=== PATIENT | female | born 1975 | race Caucasian/White ===

== ENCOUNTER 2017-07-22 06:55 | Inpatient (IN) | payer BC ==
[~2017-07-22 06:55] MED LIST: CEFAZOLIN 2 Gram 2 GM/50 ML BAG IVPB ONE; CELECOXIB 100 MG CAPSULE PO ONE; FAMOTIDINE 20MG TABLET PO ONE; MECLIZINE 25 MG TABLET PO ONE; METOCLOPRAMIDE 10 MG TABLET PO ONE; VANCOMYCIN HCL 1,000 MG in DEXTROSE 5 % IN WATER 250 ML IVPB ONE
[2017-07-22 07:57] LABS: ABO GROUP B; ANTIBODY SCREEN NEGATIVE (NEGATIVE); RH TYPE POSITIVE
[2017-07-22] MEDS ORDERED: TRAMADOL HCL 50 MG TABLET PO PRN (10:41)
[2017-07-22] MEDS ORDERED: MAGNESIUM HYDROXIDE 30 ML UDC PO PRN (10:41)
[2017-07-22] MEDS ORDERED: ZOLPIDEM TARTRATE 5 MG TABLET PO PRN (10:41)
[2017-07-22] MEDS ORDERED: ONDANSETRON HCL IV 4 MG/2 ML VIAL IVP PRN (10:41)
[2017-07-22] MEDS ORDERED: BISACODYL 10 MG SUPP RC PRN (10:41)
[2017-07-22] MEDS ORDERED: NALOXONE 0.4 MG/1 ML VIAL IVP PRN (10:41)
[2017-07-22] MEDS ORDERED: ACETAMINOPHEN 325 MG TAB PO PRN (10:41)
[2017-07-22] MEDS ORDERED: AL HYDROX/MAG HYDROX 30ML UD PO PRN (10:41)
[2017-07-22] MEDS ORDERED: ACETAMINOPHEN W/ CODEINE 300MG/60MG TABLET PO PRN ×2 (10:41)
[2017-07-22] MEDS ORDERED: HYDROCODONE/APAP 10/325 TABLET PO PRN (10:41)
[2017-07-22] MEDS: HYDROMORPHONE HCL 2 MG/ML VIAL IM PRN ×3 (12:50→20:51)
[2017-07-22] MEDS: POTASSIUM CHLORIDE/D5-0.9%NACL 20 MEQ/1,000 ML BAG IV SCH ×2 (12:52→21:36)
--- NOTE | 2017-07-22 14:22 | Rehab Evaluation ---
Patient Information - Patient Information Diagnosis: L knee DJD Ordered Treatment: PT Evaluate and Treat Status: Initial Evaluation Surgery: Yes (L TKA) Date of Surgery: 07/22/17 Past Medical/Surgical Hx: PAST MEDICAL/SURGICAL HISTORY Past Surgical History left knee scope c section right shoulder surgery back sx last on 07-06-17 cage with rods lumbar and then hardware removal with synthetic disc lap band juan m PMH - Respiratory Hx Respiratory Disorders No Hx Asthma No Hx Bronchitis No Hx Chronic Obstructive No Pulmonary Disease (COPD) Hx Dyspnea No Hx Pneumonia No Hx Pulmonary Embolism No Hx Sleep Apnea No Hx Tuberculosis No Hx of CPAP No PMH - Cardiovascular Hx Cardiovascular Disorders No Hx Abnormal EKG No Hx Cardiac Catheterization No Hx Chest Pain No Hx Congestive Heart Failure No Hx Deep Vein Thrombosis No Hx Edema No Hx Heart Attack No Hx Hypertension No Hx Hypotension No Hx Irregular Heartbeat No Hx Palpitations No Hx Pacemaker/Defibrillator No Hx Vascular Disease No Exercise Tolerance Good Hx Transient Ischemic Attacks No (TIA) Hx of Migraines Yes: hx of PMH - Neuro Hx Brain Tumor No Hx Cerebrovascular Accident No Hx Dementia No Hx Dizziness No Hx Headaches Yes Hx Neuropathy Yes: left leg from back Hx Parkinson's Disease No Hx Seizures No Hx Speech Problem No Hx Syncope No Hx Transient Ischemic Attacks No (TIA) Comment: blood clot on brain 6 yrs ago, dissolved with medication. blood thin 6mo PMH - GI Hx Gastrointestinal Disorders No Hx Abdominal Pain No Hx Celiac Disease No Hx Crohn's Disease No Hx Diverticulitis No Hx Gastrointestinal Bleed No Hx Gastroesophageal Reflux No Hx Hepatitis/Jaundice No Hx Hiatal Hernia No Hx Irritable Bowel No Hx Liver Disease No Hx Nausea/Vomiting No Hx Obstructive Bowel No Hx Pancreatitis Yes: 2014 Hx Rectal Bleeding No Hx Ulcer No Hx Weight Loss/Weight Gain No Comment: gastric lap band 2011 PMH - Hx Genitourinary Disorders No Hx Age of Menopause 37 Hx Bladder Problem No Hx Dialysis No Hx Kidney Stones No Hx Renal Disease No Hx Urinary Tract Infection No PMH - Endocrine Hx Endocrine Disorders No Hx Diabetes No Hx Thyroid Disease No PMH - Musculoskeletal Hx Musculoskeletal Disorders Yes Hx Arthritis Yes Hx Back Injury Yes Hx Fibromyalgia No Hx Gout No Hx Musculoskeletal Disease No Hx Osteoporosis No PMH - Psych Hx Psychiatric Problems Yes Hx Anxiety Yes Hx Behavior Problems No Hx Depression No Hx Emotional Abuse No Hx Sexual Abuse No Hx Suicide Attempt No Major Depressive Episode No Feelings of Hopelessness No PMH - Hematology/Oncology Hx Hematology/Oncology Yes Disorders Hx Anemia No Hx Blood Disorders No Hx Bruising No Hx Cancer No Hx Clotting Problems Yes: clot in brain 6 years ago Hx Sickle Cell Disease No Hx Unexplained Bleeding No Hx Blood Transfusion Reaction No Premorbid Status: Detail (The patient was independent with all mobility, ambulation was painful.) Social History: Detail (The patient lives in a single story home with 3 to 4 steps and a railing at the enterance. The patient's bathroom is equipped with a tub/shower combination with a tub seat and a standard toilet without grab rails. The patient has a two wheeled walker.) Precautions: [place], Other (WBAT on the L LE.) - Time With Patient Total Time Spent With Patient (Min): 30 Treatment Procedures: Detail (Initial Evaluation, gait training.) Subjective Information - Subjective Information Per Patient (The patient had minimal complaints of knee pain. The patient did not rate her pain using 0-10 pain scale.) Objective Data - Mental Status Patient Orientation: Oriented x3 - Visual Perception Appears within normal limits for therapeutic activities - ROM Not within normal limits (The patient's R LE AROM was WNL. The patient's L knee AROM was not tested secondary to s/p surgery, L hip and ankle AROM were WNL.) - Strength/Tone Not within normal limits (The patient's R LE strength was generally 4+ to 5/5, L LE strength was not tested secondary to status post surgery however strength was functional, the patient was able to complete a SLR.) - Bed Mobility Independent (The patient was independent with supine to and from sit.) - Transfers Independent (The patient was independent with sit to and from stand transfer and toilet transfer. The patient required occasional verbal cues to use walker to turn.) - Balance Balance Sitting: Good Balance Standing: Good - Gait Detail (The patient ambulated with wheeled walker WBAT on the L LE 60 feet x 1, 13 feet x 1 with assist of one for equipment only.) Therapy Assessment - Therapy Assessment Detail (The patient was still drowsy from surgery however the patient was independent with mobility. Feel the patient will progress well in PT.) Problem List - Problem List Physical Therapy Problem List: Detail (1) Decreased L LE AROM and strength as to be expected following surgery. 2) Non ambulatory on stairs) Goals - Goals Physical Therapy Goals: 1) The patient will be Independent/supervision for safety with ambulation on stairs. 2) The patient will be independent with HEP. 3) The patient will be independent with ambulation on levels a distance of 70 feet plus WBAT on the L LE. Prognosis - Prognosis Good Plan - Plan Physical Therapy Plan: PT 1-2 times a day for gait training, transfer training and instruction in HEP until all inpatient PT goals are met.
[2017-07-22] MEDS ORDERED: HYDROMORPHONE HCL 2 MG/ML VIAL IV ONE (14:36)
--- NOTE | 2017-07-22 15:22 | Operative Note ---
DATE OF SURGERY: 07/22/17 PREOPERATIVE DIAGNOSIS: OSTEOARTHROSIS OF THE RIGHT KNEE. POSTOPERATIVE DIAGNOSIS: OSTEOARTHROSIS OF THE RIGHT KNEE. PROCEDURE: CEMENTED LEFT TOTAL KNEE ARTHROPLASTY USING BARROW-NEPHEW MAICO II COMPONENTS WITH A SIZE 4 OXINIUM FEMUR, SIZE 4 STEM TIBIAL BASEPLATE, A 9 MM LIPPED HIGHLY CROSSLINKED TIBIAL INSERT, AND A 35 MM ALL-PLASTIC PATELLA. STAFF SURGEON: SAMPSON KHAN M.D. ANESTHESIA: GENERAL. PREPARATION: CHLORAPREP. INDIVIDUAL CONSIDERATIONS: NONE. PROCEDURE: The patient was taken to the Operating Room and placed supine on the operating table. She had a successful induction of a general anesthetic. Her left lower extremity was prepped and draped in the usual fashion. The limb was elevated. The tourniquet was inflated to 300 mmHg. The patient had a midline approach to the knee. Sharp dissection was carried down through the skin and subcutaneous tissues. Small veins were coagulated with a Bovie. A medial arthrotomy was performed. Patella was everted and the knee was flexed. She had changes on the patella in the notch and changes especially in the medial femoral condyle and essentially on the medial tibial plateau. The fat pad was resected, ACL was sacrificed, provisional anterior meniscectomies were performed, and the capsule was released from the medial proximal tibia. The initial femoral boat pilot hole was then made freehand. The intramedullary femoral cutting jig was placed and it was cut in 7.0 degrees of valgus and adjusted for rotation, and secured with pins for a 10 mm resection. The initial transverse cut was then made. Skin guide was placed for the anterior and posterior boat pilot holes. It was found that a size 4 would be appropriate after translating anteriorly 2 mm using the guide. The anterior and posterior cuts followed by chamfer cuts were made, osteophytes were removed, and a size 4 trial was placed and found to fit well. The tibia was brought forward and the remainder of the meniscal remnants were removed with a Bovie. The extra-articular tibial guide was placed and it was cut in neutral with a 3-degree AP slope. Care was taken to adjust for rotation and flexion using the extra-articular alignment guide and bony landmarks. It was set for a 9 mm resection and keyed off the high lateral side and secured with pins. When cutting the tibia, care was taken to preserve the PCL insertion on the tibia. After removing osteophytes, I was able to fit a size 4, it was adjusted for rotation, and secured with pins. With a 9 mm trial and femoral trial, there was excellent motion and stability. Ligamentous balance, rotation, and alignment were thought to be normal. The femoral boat pilot holes were impacted and the triflange tibial stamp was impacted, and these trial components were removed. The patient had a thick patella and roughly 9 mm of bone was removed with an oscillating saw and I was easily able to fit a 35 mm patella. The boat pilot holes were drilled. The tourniquet was let down briefly and hemostasis was obtained posteriorly and then placed back up again. The knee was then thoroughly irrigated out with pulsatile Betadine and saline to remove any visual or palpable debris. Bony surfaces were then dried. A size 4 stemmed tibial baseplate was cemented into place, followed by impaction of a 9 mm lipped tibial insert, followed by cementing in the size 4 Oxinium femur, followed by cementing of a 35 mm patella. Implant surfaces were compressed, excess cement was removed, and after the cement had set, there was excellent motion and stability, ligamentous balance, rotation, alignment, and patellofemoral tracking were normal. No lateral release was required. Again, thorough irrigation. The tourniquet was let down. Hemostasis was obtained with a Bovie. The skin, subcutaneous, and periosteum were then infiltrated with 0.75% Marcaine with Epinephrine. After putting the tourniquet down and obtaining hemostasis and doing a final irrigation, the capsule was closed with a running # 2 quill, the subcutaneous was closed with running 0 quill, the skin was closed with ace, and a sterile Bulkee compressive Aquacel-type dressing was applied. Prior to this, I did inject the knee with 1 gram of Tranexamic Acid mixed with 30 mL of saline. The patient did receive 1 gram of Tranexamic Acid IV prior to the procedure. The patient tolerated the procedure well. Needle and sponge counts were correct. Estimated blood loss was minimal and she was taken back to the Recovery Room in good condition. There were no complications. cc: Dr. Chaim Watt JOB NUMBER: [id number] MTDD
[2017-07-22] MEDS ORDERED: TRANEXAMIC ACID 1,000 MG/10 ML ML IV ONE (15:40)
[2017-07-22] MEDS ORDERED: BUPIVACAINE 0.75% W/EPI MPF 30ML VIAL IVP ONE (15:40)
[2017-07-22] MEDS: CEFAZOLIN 2 Gram 2 GM/50 ML BAG IVPB SCH (17:21)
[2017-07-22] MEDS: HYDROCODONE/APAP 10/325 TABLET PO PRN (17:28)
[2017-07-22] MEDS: DIPHENHYDRAMINE HCL 25 MG CAPSULE PO PRN (20:00)
[2017-07-22] MEDS: DOCUSATE SODIUM 100 MG CAPSULE PO SCH (21:37)
[2017-07-22] MEDS ORDERED: ZOLPIDEM TARTRATE 5 MG TABLET PO SCH (22:00)
[2017-07-23] MEDS: CEFAZOLIN 2 Gram 2 GM/50 ML BAG IVPB SCH ×2 (00:49→08:54)
[2017-07-23] MEDS: HYDROCODONE/APAP 10/325 TABLET PO PRN ×3 (01:35→10:38)
[2017-07-23] MEDS: DIPHENHYDRAMINE HCL 25 MG CAPSULE PO PRN (03:12)
[2017-07-23] MEDS: POTASSIUM CHLORIDE/D5-0.9%NACL 20 MEQ/1,000 ML BAG IV SCH ×2 (04:18→14:52)
[2017-07-23 07:00] LABS: HEMATOCRIT 33.7 % (35.0-47.0); HEMOGLOBIN 10.6 gm/dl (11.6-16.0)
[2017-07-23 07:14] LABS: BLOOD UREA NITROGEN 7 mg/dL (6-20); CREATININE 0.7 mg/dL (0.5-0.9); EST GLOMERULAR FILTRATION RATE > 60 mL/min; GLUCOSE,RANDOM 82 mg/dL (74-109)
[2017-07-23] MEDS: HYDROMORPHONE HCL 2 MG/ML VIAL IM PRN (08:52)
[2017-07-23] MEDS ORDERED: RIVAROXABAN 10 MG TABLET PO SCH (10:00)
[2017-07-23] MEDS ORDERED: FLUOXETINE HCL 20 MG CAPSULE PO SCH (10:00)
[2017-07-23] MEDS ORDERED: FERROUS SULFATE 325 MG TAB PO SCH (10:00)
[2017-07-23] MEDS: DOCUSATE SODIUM 100 MG CAPSULE PO SCH (10:39)
--- NOTE | 2017-07-23 11:08 | Rehab Evaluation ---
Patient Information - Patient Information Diagnosis: L knee DJD Ordered Treatment: OT Evaluate and Treat Status: Initial Evaluation Surgery: Yes (L TKA) Date of Surgery: 07/22/17 Past Medical/Surgical Hx: PAST MEDICAL/SURGICAL HISTORY Past Surgical History left knee scope c section right shoulder surgery back sx last on 07-06-17 cage with rods lumbar and then hardware removal with synthetic disc lap band juan m PMH - Respiratory Hx Respiratory Disorders No Hx Asthma No Hx Bronchitis No Hx Chronic Obstructive No Pulmonary Disease (COPD) Hx Dyspnea No Hx Pneumonia No Hx Pulmonary Embolism No Hx Sleep Apnea No Hx Tuberculosis No Hx of CPAP No PMH - Cardiovascular Hx Cardiovascular Disorders No Hx Abnormal EKG No Hx Cardiac Catheterization No Hx Chest Pain No Hx Congestive Heart Failure No Hx Deep Vein Thrombosis No Hx Edema No Hx Heart Attack No Hx Hypertension No Hx Hypotension No Hx Irregular Heartbeat No Hx Palpitations No Hx Pacemaker/Defibrillator No Hx Vascular Disease No Exercise Tolerance Good Hx Transient Ischemic Attacks No (TIA) Hx of Migraines Yes: hx of PMH - Neuro Hx Brain Tumor No Hx Cerebrovascular Accident No Hx Dementia No Hx Dizziness No Hx Headaches Yes Hx Neuropathy Yes: left leg from back Hx Parkinson's Disease No Hx Seizures No Hx Speech Problem No Hx Syncope No Hx Transient Ischemic Attacks No (TIA) Comment: blood clot on brain 6 yrs ago, dissolved with medication. blood thin 6mo PMH - GI Hx Gastrointestinal Disorders No Hx Abdominal Pain No Hx Celiac Disease No Hx Crohn's Disease No Hx Diverticulitis No Hx Gastrointestinal Bleed No Hx Gastroesophageal Reflux No Hx Hepatitis/Jaundice No Hx Hiatal Hernia No Hx Irritable Bowel No Hx Liver Disease No Hx Nausea/Vomiting No Hx Obstructive Bowel No Hx Pancreatitis Yes: 2014 Hx Rectal Bleeding No Hx Ulcer No Hx Weight Loss/Weight Gain No Comment: gastric lap band 2011 PMH - Hx Genitourinary Disorders No Hx Age of Menopause 37 Hx Bladder Problem No Hx Dialysis No Hx Kidney Stones No Hx Renal Disease No Hx Urinary Tract Infection No PMH - Endocrine Hx Endocrine Disorders No Hx Diabetes No Hx Thyroid Disease No PMH - Musculoskeletal Hx Musculoskeletal Disorders Yes Hx Arthritis Yes Hx Back Injury Yes Hx Fibromyalgia No Hx Gout No Hx Musculoskeletal Disease No Hx Osteoporosis No PMH - Psych Hx Psychiatric Problems Yes Hx Anxiety Yes Hx Behavior Problems No Hx Depression No Hx Emotional Abuse No Hx Sexual Abuse No Hx Suicide Attempt No Major Depressive Episode No Feelings of Hopelessness No PMH - Hematology/Oncology Hx Hematology/Oncology Yes Disorders Hx Anemia No Hx Blood Disorders No Hx Bruising No Hx Cancer No Hx Clotting Problems Yes: clot in brain 6 years ago Hx Sickle Cell Disease No Hx Unexplained Bleeding No Hx Blood Transfusion Reaction No Premorbid Status: Detail (The patient was independent with all I/ADL's and mobility, ambulation was painful. Pt. has hx of R RTC repair sx but is still WFL , and mild [place]. CTS.) Social History: Detail (Pt. lives in a 2 story home with a 3-4 step entry with 1 railing. Pt's bed, bath, and all needs are on the main floor (per pt report, pt plans to stay on main floor during recovery phase and not use the stairs). Bathroom has a standard toilet, and a tub/shower combo with a shower chair ( borrowed) and hand held shower head. Pt. has a 2WW. Pt.'s , son (15 yo), daughter (college age), and mother are available to assist if needed.) Precautions: [place], Other (WBAT on the L LE.) - Time With Patient Total Time Spent With Patient (Min): 20 Objective Data - Pain Pain Present: Yes (Pt stated 8/10 knee pain) - Mental Status Patient Orientation: Oriented x3 - Visual Perception Appears within normal limits for therapeutic activities - ROM Within normal limits (BUE WNL; RUE slight shd flex deficit, but does not effect function.) - Strength/Tone Within normal limits (LUE 5/5 MMT & RUE 4+/5 (except triceps 4/5).) - Coordination Appears within normal limits for therapeutic activities - Bed Mobility Independent - Transfers Independent (sit<>stand) - Balance Balance Sitting: Good Balance Standing: Fair - Sensation Intact (lt touch intact BUE fingertips. Pt. reports hx of Ethan. CTS (mild) but typically does not effect function.) - ADL's/IADL's Detail (Pt. demo. ability to dress total body independently seated EOB. Educ. provided on adaptive dressing techniques, use of architectural administrative assistant if needed, and CTS prevention educ. to avoid exacerbation while using walker. Pt. returned demo. and verbalized understanding. Pt. reports no concerns of performing activities upon return home.) Therapy Assessment - Therapy Assessment Detail (No OT services or AE needed at this time. Pt. demo. awareness of dressing techniques, and has no concerns. Pt. has a positive support system and assistance if needed during recovery phase.) Patient Education - Patient Education Teaching Topic: Equipment Use, Exercise/Activity Response: Return Demonstration, Verbalize Understanding Teaching Method: Discussion Teaching Recipient: Patient Barriers To Learning: None Problem List - Problem List Physical Therapy Problem List: Detail (1) Decreased L LE AROM and strength as to be expected following surgery. 2) Non ambulatory on stairs) Goals - Goals Physical Therapy Goals: 1) The patient will be Independent/supervision for safety with ambulation on stairs. 2) The patient will be independent with HEP. 3) The patient will be independent with ambulation on levels a distance of 70 feet plus WBAT on the L LE. Prognosis - Prognosis Good Plan - Plan Physical Therapy Plan: PT 1-2 times a day for gait training, transfer training and instruction in HEP until all inpatient PT goals are met. Occupational Therapy Plan: D/C from OT services at this time. Educ. was provided to call rehab dept. if Q's/concerns arise when arrive home, and pt verbalized understanding.
--- NOTE | 2017-07-23 11:54 | Physical Therapy Tx Note ---
Physical Therapy Tx Note - Treatment Note Tolerated: Good Total Time Spent With Patient: 40 Physical Therapy Tx Note: Detail (Breif review of HEP discussion good understanding of exercise. Pt supine<>sit independent sit<>stand independent with 2ww, Ambulation with 2ww 100ft x1 and ascending & descend stairs, required minimal cues for which leg first on stairs and walker position on stairs. Pt good with precautions also.) Physical Therapy Problem List: Detail (1) Decreased L LE AROM and strength as to be expected following surgery. 2) Non ambulatory on stairs) Physical Therapy Goals: 1) The patient will be Independent/supervision for safety with ambulation on stairs. Goal met. 2) The patient will be independent with HEP.Goal met. 3) The patient will be independent with ambulation on levels a distance of 70 feet plus WBAT on the L LE.Goal met Physical Therapy Plan: PT 1-2 times a day for gait training, transfer training and instruction in HEP until all inpatient PT goals are met.
[2017-07-23] MEDS ORDERED: METOCLOPRAMIDE HCL 10 MG/2 ML VIAL IVP ONE (14:38)
[2017-07-23] MEDS ORDERED: SUCCINYLCHOLINE 20 MG/ML 10ML IVP ONE (14:38)
[2017-07-23] MEDS ORDERED: LIDOCAINE 2% MDV (20MG/ML) 20ML VIAL IV ONE (14:38)
[2017-07-23] MEDS ORDERED: DESFLURANE 240 ML BTL INH ONE (14:38)
[2017-07-23] MEDS ORDERED: PROPOFOL 10 MG/ML VIAL IV ONE (14:38)
[2017-07-23] MEDS ORDERED: ONDANSETRON HCL IV 4 MG/2 ML VIAL IVP ONE (14:38)
[2017-07-23] MEDS ORDERED: HYDROMORPHONE HCL 2 MG/ML VIAL IV ONE (14:38)
[2017-07-23] MEDS ORDERED: 0.9 % SODIUM CHLORIDE 10 ML VIAL IVP ONE (14:38)
[2017-07-23] MEDS ORDERED: FENTANYL PF 100MCG/2ML VIAL IV ONE (14:38)
[2017-07-23] MEDS ORDERED: MIDAZOLAM HCL 2MG/2ML VIAL IV ONE (14:38)
[2017-07-23] MEDS ORDERED: TRANEXAMIC ACID 1,000 MG/10 ML ML IV ONE (14:38)
--- NOTE | 2017-07-25 07:45 | Discharge Summary ---
DATE OF ADMISSION: 07/22/2017. DATE OF DISCHARGE: 07/23/2017. HISTORY: Susan is a delightful 41-year-old female who presents with arthrosis in her left knee. She was admitted after a left total knee arthroplasty. Postoperatively she did well. Her hospital course was unremarkable. LABORATORY DATA: Discharge hemoglobin was 10.6, and she did not require transfusion. PLAN: The plan is to discharge her home in the care of her family. Home physical therapy and visiting nurse has been arranged. She will be given [place] and a few Oxy IR for breakthrough pain. She will also be given Xarelto for deep venous thrombosis prophylaxis. Her visiting nurse will remove her sutures in two weeks. She will follow up in my office in four weeks. FINAL DIAGNOSIS AND PRIMARY DIAGNOSIS: Endstage arthrosis of the left knee. SECONDARY DIAGNOSIS: Operative blood loss anemia. OPERATIONS AND PROCEDURES: Cemented left total knee arthroplasty. DISCHARGE CONDITION: Good. JOB NUMBER: [id number] cc: Ariel Mack
== END 2017-07-23 14:39 | disposition home health service (06) | DRG 470 ==
LOC: MEDSURG 06:55
PROVIDERS: ADMIT Orthopaedic Surgery; ATTEND Orthopaedic Surgery
PROC: 0SRC069 Replacement of Right Knee Joint with Oxidized Zirconium on Polyethylene Synthetic Substitute, Cemented, Open Approach (ICD-10-PCS; principal; 2017-07-22 09:00)
DX: M17.11 Unilateral primary osteoarthritis, right knee (principal); Z86.718 Personal history of other venous thrombosis and embolism; Z98.84 Bariatric surgery status
CPT/HCPCS: 80048; 85014; 85018; 86850; 86900; 86901; 93005; 94760; 97165; 97530; C1776; J0330; J2405; J2765; J3480; J3490